=== PATIENT | female | born 1985 | race Caucasian/White ===

== ENCOUNTER 2020-05-04 18:14 | Emergency (ER) | payer MEDICAID ==
[~2020-05-04] VITALS: Ht 177.8 cm; Wt 85.9 kg
[2020-05-04 19:10] LABS: BASO % 1 % (0-3); EOS # 0.3 x10^3/uL (0.0-0.7); EOS % 4 % (0-3); HEMATOCRIT 36.1 % (36.0-47.0); HEMOGLOBIN 11.3 g/dL (12.0-15.5); LYMPH # 2.2 x10^3/uL (1.0-4.8); LYMPH % 33 % (24-48); MEAN CORPUSCULAR HEMOGLOBIN 25 pg (25-35); MEAN CORPUSCULAR HGB CONC 31 g/dL (31-37); MEAN CORPUSCULAR VOLUME 80 fL (79-100); MONO # 0.6 x10^3/uL (0.0-1.1); MONO % 9 % (0-9); NEUT # 3.6 x10^3/uL (1.8-7.7); NEUT % 53 % (31-73); PLATELET COUNT 238 x10^3/uL (140-400); RED BLOOD COUNT 4.51 x10^6/uL (3.50-5.40); RED CELL DISTRIBUTION WIDTH 16.6 % (11.5-14.5); WHITE BLOOD COUNT 6.8 x10^3/uL (4.0-11.0)
--- NOTE | 2020-05-04 19:12 | PHYS DOC ---
Past Medical History Past Medical History: Hepatitis, Other Additional Past Medical Histor: substance abuse (heroin) Past Surgical History: No Surgical History Smoking Status: Current Every Day Smoker Alcohol Use: None General Adult EDM: Chief Complaint: OVERDOSE HPI: HPI: Patient is a 35 year old female with history of heroin abuse presents emergency department for heroin intoxication. Patient reports she was at work. She did use heroin and her boss found her on the ground. She does think she fell. She remembers using heroin and [employer] thank you members. Her boss awoke her and drove her to the emergency department. Patient reports she has been a heroin addict for most of her adult life. She just relapsed recently. She was clean for 9 months. Patient does complain of some left-sided neck pain. No headache that she knows of. She is feels very tired. No chest pain shortness of breath nausea vomiting fever chills cough numbness weakness pain in the upper or lower extremities. Patient denies alcohol abuse. No other drug use today. Review of Systems: Review of Systems: Review of Systems: Constitutional: Denies fever or chills Eyes: Denies redness or eye pain HENT: Denies nasal congestion or sore throat Respiratory: Denies cough or shortness of breath Cardiovascular: Denies chest pain or palpitations GI: denies abdominal pain and nausea, denies vomiting or diarrhea : Denies dysuria or hematuria Musculoskeletal: Denies back pain or joint pain Integument: Denies rash or skin lesions Neurologic: Denies headache, focal weakness or sensory changes Heart Score: C/O Chest Pain: No Allergies: Allergies: Allergies Coded Allergies Type Severity Reaction Last Updated Verified No Known Drug Allergies 05/04/20 No Physical Exam: PE: GENERAL APPEARANCE: Awake and alert. Cooperative. No acute distress. Non toxic appearing. Patient does fall asleep easily but awakes without difficulty. HEAD: Normocephalic. Atraumatic. EYES: EOM's grossly intact. Sclera anicteric. Conjunctiva clear. Pupils equal and small but reactive. ENT:. Airway patent. Mucous membranes moist. No trismus. Tolerating secretions. NECK: Supple. Trachea midline. Mild tenderness palpation over the paraspinal muscles of the left cervical spine. No midline cervical spine tenderness. No edema erythema. No crepitus. HEART: Regular rate and rhythm. Radial pulses 2+. Good capillary refill. LUNGS: Respirations unlabored. Clear to auscultation bilaterally. No rales, rhonchi, wheezing or retractions. ABDOMEN: Soft. Non-tender. No guarding or rebound. No CVA tenderness. No palpable or pulsatile mass. EXTREMITIES: No acute deformities. Superficial areas of erythema no edema fluctuance or induration. These are areas of injection per history. SKIN: Warm and dry. No rash. NEUROLOGICAL: Alert and oriented x3. Cranial nerves II through XII intact. Sensation is normal. Speech normal. Muscle strength is 5 out of 5 bilateral upper and lower extremities. No gross neurological deficits. Moves all 4 extremities spontaneously. Cerebellar functions intact. PSYCHIATRIC: Normal mood. Current Patient Data: Vital Signs: Vital Signs Date Time Temp Pulse Resp B/P (MAP) Pulse Ox O2 Delivery O2 Flow Rate FiO2 05/04/20 18:14 97.4 76 16 117/71 (86) 100 Room Air 97.4 EKG: EKG: [] EKG interpretation shows sinus rhythm ventricular rate of 87 bpm. SC interval 130 ms. QRS duration 100 ms. QTc [address] segment elevation or arrhythmias. Course & Med Decision Making: Course & Med Decision Making Medical decision making: This is a 35-year-old female presents emergency department after heroin intoxication. Was found on the floor by her boss. Upon arrival to the emergency department by private vehicle patient is awake alert oriented can answer my questions and follow my commands. She does admit to using heroin today. No other drug use. She has some mild left-sided neck pain. Patient reports this has been ongoing for several months. Vital signs stable. Patient was placed in cervical collar. I did discuss doing CT of the head and cervical spine as she did fall. Patient agrees. We will watch patient and obtain labs. Patient agreeable to plan. Patient did not require any narcotic reversal medications. 2030: I was notified by nursing that patient had eloped from the emergency department. She did not notify anybody that she was leaving. At this time patient had eloped from the emergency department. Patient did not get CT scan of the head or neck. Dragon Disclaimer: Dragon Disclaimer: This electronic medical record was generated, in whole or in part, using a voice recognition dictation system. Departure Departure Impression: Primary Impression: Heroin abuse Additional Impression: Fall Disposition: 07 AMA/ELOPED/LWBS (patient eloped at 1953 per security camera. I was notified at 2029. ) KIM FERGUSON DO May 04, 2020 19:12
[2020-05-04 19:14] VITALS: BP 110/63
[2020-05-04 19:20] LABS: CALCIUM 8.8 mg/dL (8.5-10.1); CREATININE 0.9 mg/dL (0.6-1.0); GFR 71.3; POTASSIUM 4.3 mmol/L (3.5-5.1)
[2020-05-04 19:26] LABS: ALBUMIN 3.2 g/dL (3.4-5.0); ALBUMIN/GLOBULIN RATIO 0.7 (1.0-1.7); TOTAL BILIRUBIN 0.2 mg/dL (0.2-1.0); TOTAL PROTEIN 7.6 g/dL (6.4-8.2)
[2020-05-04 19:39] LABS: BILIRUBIN,URINE NEGATIVE (NEG); CLARITY,URINE CLEAR; COLOR,URINE YELLOW; NITRITE,URINE NEGATIVE (NEG); PH,URINE 5.5 (<5.0-8.0); PROTEIN,URINE NEGATIVE (NEG-TRACE); UROBILINOGEN,URINE 0.2 mg/dL (0.2 mg/dL)
[2020-05-04 19:45] LABS: BACTERIA,URINE FEW /HPF (0-FEW); RBC,URINE 0 /HPF (0-2); WBC,URINE >40 /HPF (0-4)
--- NOTE | 2020-05-04 21:04 | EKG ---
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
== END 2020-05-04 19:54 | disposition left against medical advice (07) ==
LOC: ER 18:14
DX: F11.10 Opioid abuse, uncomplicated (principal); M54.2 Cervicalgia; F17.200 Nicotine dependence, unspecified, uncomplicated; G89.11 Acute pain due to trauma; W18.39XA Other fall on same level, initial encounter; Y93.89 Activity, other specified; Y92.89 Other specified places as the place of occurrence of the external cause; Y99.8 Other external cause status
CPT/HCPCS: 36415; 80053; 81001; 81025; 85025; 87086; 93005; 99283; 99284